=== PATIENT | male | born 1955 | race Caucasian/White ===

== ENCOUNTER 2020-10-16 07:37 | Outpatient (REF) | payer MEDICARE, OTHER, SELFPAY | END 2020-10-16 07:38 | disposition home or self-care (01) | LOC: HO.LAB 07:37 | PROVIDERS: PCP Internal Medicine; Visit Provider Internal Medicine | DX: Z20.822 Contact with and (suspected) exposure to COVID-19 (principal) | CPT/HCPCS: C9803; U0003; U0005 ==

== ENCOUNTER 2022-03-29 13:10 | Emergency (ER) | payer MEDICARE, OTHER, SELFPAY ==
[2022-03-29 13:13] VITALS: BP 131/58; PULSE 73; RESP 18; TEMP 36.4; O2SAT 99; BMI 32.8
--- NOTE | 2022-03-29 13:13 | ED.GENADULT ---
HPI - General Adult General Chief complaint: General Medical <YORDAN Omer - Last Filed: 03/29/22 13:16> Stated complaint: Needs IV antibiotic <YORDAN Omer - Last Filed: 03/29/22 13:16> Time Seen by Provider: 03/29/22 15:55 <YORDAN Omer - Last Filed: 03/29/22 13:16> Source: patient and family <Yandy Lr NP - Last Filed: 03/29/22 21:28> Mode of arrival: ambulatory <Yandy Lr NP - Last Filed: 03/29/22 21:28> Limitations: no limitations <Yandy Lr NP - Last Filed: 03/29/22 21:28> History of Present Illness HPI narrative: 66-year-old male presents for abnormal lab results from his paracentesis this morning. He was called by his nurse at the [facility] to return to [facility] or present to emergency department for spontaneous bacterial peritonitis. <Yandy Lr NP - Last Filed: 03/29/22 21:28> Onset (ago): hour(s) (Within the hour of arrival) <Yandy Lr NP - Last Filed: 03/29/22 21:28> Location: abdomen <Yandy Lr NP - Last Filed: 03/29/22 21:28> Radiation: non-radiation <Yandy Lr NP - Last Filed: 03/29/22 21:28> Associated symptoms: denies other symptoms <Yandy Lr NP - Last Filed: 03/29/22 21:28> Related Data Home medications: Home Medications Medication Instructions Recorded Confirmed albuterol sulfate 90 mcg/actuation 2 puff inhalation Q4H PRN wheezing 03/29/22 03/29/22 aerosol inhaler cholecalciferol (vitamin D3) 25 2 tab PO DAILY 03/29/22 03/29/22 mcg (1,000 unit) tablet furosemide 40 mg tablet 1 tab PO DAILY 03/29/22 03/29/22 nadolol 40 mg tablet 1 tab PO BEDTIME 03/29/22 03/29/22 pioglitazone 15 mg-metformin 850 1 tab PO BID 03/29/22 03/29/22 mg tablet simvastatin 40 mg tablet 1 tab PO BEDTIME 03/29/22 03/29/22 spironolactone 25 mg tablet 0.5 tab PO DAILY 03/29/22 03/29/22 <YORDAN Omer - Last Filed: 03/29/22 13:16> Allergies/adverse reactions: Allergies Allergy/AdvReac Type Severity Reaction Status Date / Time No Known Allergies Allergy Unverified 11/11/19 18:28 <YORDAN Omer - Last Filed: 03/29/22 13:16> Review of Systems Review of Systems: Constitutional: No Fever, No Chills Cardiovascular: No Chest Pain, No SOB Respiratory: No Cough, No Dyspnea Gastrointestinal: No Nausea, No Vomiting, No Diarrhea, No abdominal Pain Genitourinary: No Dysuria, No Hematuria Musculoskeletal: no joint pain, No Myalgias, No Joint Swelling Skin: No Skin lacerations, No rash Neuro: No Weakness, No Numbness, No Paresthesias, No Dizziness, No Headache <Yandy Lr NP - Last Filed: 03/29/22 21:28> Yes all other systems are reviewed and are negative <Yandy Lr NP - Last Filed: 03/29/22 21:28> [facility] Past Medical History Attestation statement: The following information was validated with the patient. <Yandy Lr NP - Last Filed: 03/29/22 21:28> Source: old records reviewed <Yandy Lr NP - Last Filed: 03/29/22 21:28> Social History Social History: Social History Alcohol intake: unknown Advance Directives: No Advance Directives Information Provided: No <YORDAN Omer - Last Filed: 03/29/22 13:16> Physical Exam ED Vital Signs: Vital Signs - 24 hr 03/29/22 13:13 03/29/22 16:00 03/29/22 18:38 Temperature 97.5 F 98.1 F 98.2 F Pulse Rate 73 66 66 Respiratory Rate 18 16 16 Blood Pressure 131/58 L 117/62 150/65 H Pulse Oximetry 99 97 97 Oxygen Delivery Method Room Air Room Air BMI result Body Mass Index 32.8 <YORDAN Omer - Last Filed: 03/29/22 13:16> Vital Signs - 24 hr 03/29/22 13:13 03/29/22 16:00 03/29/22 18:38 Temperature 97.5 F 98.1 F 98.2 F Pulse Rate 73 66 66 Respiratory Rate 18 16 16 Blood Pressure 131/58 L 117/62 150/65 H Pulse Oximetry 99 97 97 Oxygen Delivery Method Room Air Room Air BMI result Body Mass Index 32.8 <Yandy Lr NP - Last Filed: 03/29/22 21:28> Appearance: Alert. Oriented X3. No acute distress. Mild jaundiced. Eyes: Pupils equal, round and reactive to light. ENT: Pharynx normal. Neck: Normal inspection. Neck supple. CVS: Normal heart rate and rhythm. Pulses normal. Respiratory: No respiratory distress. Breath sounds normal. Abdomen: Soft and nontender. Distended consistent with ascites. Skin: Skin warm and dry. Normal skin color. Normal skin turgor. Extremities: No lower extremity edema. Gait not assessed for safety. Neuro: No motor deficit. No sensory deficit. Cranial nerves 2 12 intact <Yandy Lr NP - Last Filed: 03/29/22 21:28> Course Course Course Narrative: RME performed by Jeanna Mason PA-C. Patient had a paracentesis at [facility], they removed 2.5 liters. Patient was called after leaving and they were informed the fluid is infected and they need to proceed to the nearest ER for IV ABX immediately. Patient has a history of cirrhosis and liver cancer. <YORDAN Omer - Last Filed: 03/29/22 13:16> RME performed by Jeanna Mason PA-C. Patient had a paracentesis at [facility], they removed 2.5 liters. Patient was called after leaving and they were informed the fluid is infected and they need to proceed to the nearest ER for IV ABX immediately. Patient has a history of cirrhosis and liver cancer. 16:00 discussion with patient, patient was evaluated at [facility] earlier today given a paracentesis for cirrhosis and liver cancer with ascites. He was called by his nurse to return to the facility for bacterial peritonitis. Of the time I wrote arrival lactic acid is 3.1, no white count, BUN 38 creatinine 1.71. Labs are pending. 16:10 lactic acid 2nd 3.0, while patient does have a positive infection, history of cancer, I do not feel that this patient is septic. Patient is afebrile, nontoxic appearing. White count is 6.9. A review of patient's records on his 's cellphone indicate lab values from 03/29/2022 sodium 131, K 5.2, chloride 99, CO2 25, gap 7, BUN 38, creatinine 1.8, 305, calcium 9.1, GFR 38. On January 10 it was noted that his BUN was 20 and creatinine 1.3. 17:48 discussion with [facility], pending transfer. Patient is an established oncology patient with Dr. Guerrier, had his paracentesis earlier today at the same clinic. Patient's family feels that patient should be transferred to [facility] for the best possible care for this patient as all of his most recent records, tests and diagnostics have been completed at that facility. 18:00 patient accepted by the [facility], Dr. Guerrier. <Yandy Lr NP - Last Filed: 03/29/22 21:28> Medications Administered Discontinued Medications Generic Name Dose Route Start Last Admin Trade Name Freq PRN Reason Stop Dose Admin Ceftriaxone Sodium 2 gm/ 50 mls @ 100 mls/hr 03/29/22 13:13 03/29/22 16:27 Sodium Chloride IV 03/29/22 13:42 Infused ONCE ONE Infusion Sodium Chloride 1,000 mls @ 999 mls/hr 03/29/22 16:15 03/29/22 17:53 Ns IVCONT 03/29/22 17:15 Infused .Q1H1M CHAN Infusion Sodium Chloride 1,000 mls @ 999 mls/hr 03/29/22 18:30 03/29/22 19:29 Ns IVCONT 03/29/22 19:30 Infused .Q1H1M CHAN Infusion <YORDAN Omer - Last Filed: 03/29/22 13:16> Medications Administered Discontinued Medications Generic Name Dose Route Start Last Admin Trade Name Freq PRN Reason Stop Dose Admin Ceftriaxone Sodium 2 gm/ 50 mls @ 100 mls/hr 03/29/22 13:13 03/29/22 16:27 Sodium Chloride IV 03/29/22 13:42 Infused ONCE ONE Infusion Sodium Chloride 1,000 mls @ 999 mls/hr 03/29/22 16:15 03/29/22 17:53 Ns IVCONT 03/29/22 17:15 Infused .Q1H1M CHAN Infusion Sodium Chloride 1,000 mls @ 999 mls/hr 03/29/22 18:30 03/29/22 19:29 Ns IVCONT 03/29/22 19:30 Infused .Q1H1M CHAN Infusion <Yandy Lr NP - Last Filed: 03/29/22 21:28> Medical Decision Making Differential Diagnosis Differential Diagnoses: The differential diagnosis associated with the presentation includes <Yandy Lr NP - Last Filed: 03/29/22 21:28> Spontaneous bacterial peritonitis <Yandy Lr NP - Last Filed: 03/29/22 21:28> Admission/Observation Consideration of admission/observation: Escalation of care including admission/observation considered <Yandy Lr NP - Last Filed: 03/29/22 21:28> Patient requires admission <Yandy Lr NP - Last Filed: 03/29/22 21:28> Consult Healthcare Provider Management of the patient was discussed with: Buggy Runner and Primary Care Provider <Yandy Lr NP - Last Filed: 03/29/22 21:28> Patient to be transferred to [facility] by his primary oncologist <Yandy Lr NP - Last Filed: 03/29/22 21:28> Lab Data MDM Lab Attestation statement: I reviewed the patient's lab results. <Yandy Lr NP - Last Filed: 03/29/22 21:28> Result Diagrams: 03/29/22 13:36 03/29/22 13:35 <YORDAN Omer - Last Filed: 03/29/22 13:16> Labs: Lab Results 03/29/22 03/29/22 03/29/22 Range/Units 13:23 13:35 13:35 WBC (4.8-10.8) X10*3/uL RBC (4.60-5.80) X10*6/uL Hgb (14.0-18.0) g/dl Hct (42.0-52.0) % MCV (80.0-98.0) fL MCH (27.0-33.0) pg MCHC (31.0-36.0) g/dl RDW (11.0-16.0) % Plt Count (160-400) X10*3/uL MPV (9.4-12.4) fL Immature Gran % (Auto) (0.0-0.4) % Neut % (Auto) (45-73) % Lymph % (Auto) (20-40) % Kings % (Auto) (2-11) % Eos % (Auto) (0-4) % Baso % (Auto) (0-2) % Lymph # (Auto) (1.2-4.9) X10*3/uL Kings # (Auto) (0.1-1.2) X10*3/uL Eos # (Auto) (0.0-0.4) X10*3/uL Baso # (Auto) (0.0-0.2) X10*3/uL Abs Immat Gran (auto) (0.00-0.03) X10*3/uL Absolute Neuts (auto) (2.0-8.3) x10*3/uL Absolute Nucleated RBC (0.0-0.012) X10*3/uL Nucleated RBC % (auto) (0.0-0.2) /100WBC PT 16.0 H (10.0-13.1) SEC INR 1.4 H (0.9-1.1) APTT 30.0 (26.0-36.4) SEC Sodium 131 L (135-145) mmol/L Potassium 4.7 (3.3-5.1) mmol/L Chloride 98 (96-108) mmol/L Carbon Dioxide 22 (22-29) mmol/L Anion Gap 16 (12-20) BUN 38 H (9-16) mg/dL Creatinine 1.71 H (0.5-1.4) mg/dL Estim Creat Clear Calc 49.1 Estimated GFR 40 Random Glucose 337 H (60-115) mg/dL Lactic Acid (0.5-2.0) mmol/L Lactic Acid F/U @ 2Hr (0.5-2.0) mmol/L Lactic Acid F/U @ 4Hr (0.5-2.0) mmol/L Calcium 9.1 (8.4-10.2) mg/dL Magnesium 1.9 (1.6-2.6) mg/dL Total Bilirubin 2.2 H (0.0-1.0) mg/dL AST 37 (5-37) U/L ALT 38 (0-40) U/L Alkaline Phosphatase 122 H (39-117) U/L Total Protein 6.9 (6.5-8.0) g/dL Albumin 2.6 L (3.5-5.0) g/dL COVID-19 (TRIPP) Negative (Negative) COVID-19 Clin Com See Note 03/29/22 03/29/22 03/29/22 Range/Units 13:35 13:36 15:48 WBC 6.9 (4.8-10.8) X10*3/uL RBC 3.10 L (4.60-5.80) X10*6/uL Hgb 9.6 L (14.0-18.0) g/dl Hct 28.4 L (42.0-52.0) % MCV 91.6 (80.0-98.0) fL MCH 31.0 (27.0-33.0) pg MCHC 33.8 (31.0-36.0) g/dl RDW 16.6 H (11.0-16.0) % Plt Count 70 L (160-400) X10*3/uL MPV 9.1 L (9.4-12.4) fL Immature Gran % (Auto) 0.3 (0.0-0.4) % Neut % (Auto) 75.6 H (45-73) % Lymph % (Auto) 11.0 L (20-40) % Kings % (Auto) 10.2 (2-11) % Eos % (Auto) 2.6 (0-4) % Baso % (Auto) 0.3 (0-2) % Lymph # (Auto) 0.8 L (1.2-4.9) X10*3/uL Kings # (Auto) 0.7 (0.1-1.2) X10*3/uL Eos # (Auto) 0.2 (0.0-0.4) X10*3/uL Baso # (Auto) 0.0 (0.0-0.2) X10*3/uL Abs Immat Gran (auto) 0.02 (0.00-0.03) X10*3/uL Absolute Neuts (auto) 5.2 (2.0-8.3) x10*3/uL Absolute Nucleated RBC 0.000 (0.0-0.012) X10*3/uL Nucleated RBC % (auto) 0.0 (0.0-0.2) /100WBC PT (10.0-13.1) SEC INR (0.9-1.1) APTT (26.0-36.4) SEC Sodium (135-145) mmol/L Potassium (3.3-5.1) mmol/L Chloride (96-108) mmol/L Carbon Dioxide (22-29) mmol/L Anion Gap (12-20) BUN (9-16) mg/dL Creatinine (0.5-1.4) mg/dL Estim Creat Clear Calc Estimated GFR Random Glucose (60-115) mg/dL Lactic Acid 3.1 H* (0.5-2.0) mmol/L Lactic Acid F/U @ 2Hr 3.0 H* (0.5-2.0) mmol/L Lactic Acid F/U @ 4Hr (0.5-2.0) mmol/L Calcium (8.4-10.2) mg/dL Magnesium (1.6-2.6) mg/dL Total Bilirubin (0.0-1.0) mg/dL AST (5-37) U/L ALT (0-40) U/L Alkaline Phosphatase (39-117) U/L Total Protein (6.5-8.0) g/dL Albumin (3.5-5.0) g/dL COVID-19 (TRIPP) (Negative) COVID-19 Clin Com 03/29/22 Range/Units 18:04 WBC (4.8-10.8) X10*3/uL RBC (4.60-5.80) X10*6/uL Hgb (14.0-18.0) g/dl Hct (42.0-52.0) % MCV (80.0-98.0) fL MCH (27.0-33.0) pg MCHC (31.0-36.0) g/dl RDW (11.0-16.0) % Plt Count (160-400) X10*3/uL MPV (9.4-12.4) fL Immature Gran % (Auto) (0.0-0.4) % Neut % (Auto) (45-73) % Lymph % (Auto) (20-40) % Kings % (Auto) (2-11) % Eos % (Auto) (0-4) % Baso % (Auto) (0-2) % Lymph # (Auto) (1.2-4.9) X10*3/uL Kings # (Auto) (0.1-1.2) X10*3/uL Eos # (Auto) (0.0-0.4) X10*3/uL Baso # (Auto) (0.0-0.2) X10*3/uL Abs Immat Gran (auto) (0.00-0.03) X10*3/uL Absolute Neuts (auto) (2.0-8.3) x10*3/uL Absolute Nucleated RBC (0.0-0.012) X10*3/uL Nucleated RBC % (auto) (0.0-0.2) /100WBC PT (10.0-13.1) SEC INR (0.9-1.1) APTT (26.0-36.4) SEC Sodium (135-145) mmol/L Potassium (3.3-5.1) mmol/L Chloride (96-108) mmol/L Carbon Dioxide (22-29) mmol/L Anion Gap (12-20) BUN (9-16) mg/dL Creatinine (0.5-1.4) mg/dL Estim Creat Clear Calc Estimated GFR Random Glucose (60-115) mg/dL Lactic Acid (0.5-2.0) mmol/L Lactic Acid F/U @ 2Hr (0.5-2.0) mmol/L Lactic Acid F/U @ 4Hr 2.4 H* (0.5-2.0) mmol/L Calcium (8.4-10.2) mg/dL Magnesium (1.6-2.6) mg/dL Total Bilirubin (0.0-1.0) mg/dL AST (5-37) U/L ALT (0-40) U/L Alkaline Phosphatase (39-117) U/L Total Protein (6.5-8.0) g/dL Albumin (3.5-5.0) g/dL COVID-19 (TRIPP) (Negative) COVID-19 Clin Com <YORDAN Omer - Last Filed: 03/29/22 13:16> Lab Results 03/29/22 03/29/22 03/29/22 Range/Units 13:23 13:35 13:35 WBC (4.8-10.8) X10*3/uL RBC (4.60-5.80) X10*6/uL Hgb (14.0-18.0) g/dl Hct (42.0-52.0) % MCV (80.0-98.0) fL MCH (27.0-33.0) pg MCHC (31.0-36.0) g/dl RDW (11.0-16.0) % Plt Count (160-400) X10*3/uL MPV (9.4-12.4) fL Immature Gran % (Auto) (0.0-0.4) % Neut % (Auto) (45-73) % Lymph % (Auto) (20-40) % Kings % (Auto) (2-11) % Eos % (Auto) (0-4) % Baso % (Auto) (0-2) % Lymph # (Auto) (1.2-4.9) X10*3/uL Kings # (Auto) (0.1-1.2) X10*3/uL Eos # (Auto) (0.0-0.4) X10*3/uL Baso # (Auto) (0.0-0.2) X10*3/uL Abs Immat Gran (auto) (0.00-0.03) X10*3/uL Absolute Neuts (auto) (2.0-8.3) x10*3/uL Absolute Nucleated RBC (0.0-0.012) X10*3/uL Nucleated RBC % (auto) (0.0-0.2) /100WBC PT 16.0 H (10.0-13.1) SEC INR 1.4 H (0.9-1.1) APTT 30.0 (26.0-36.4) SEC Sodium 131 L (135-145) mmol/L Potassium 4.7 (3.3-5.1) mmol/L Chloride 98 (96-108) mmol/L Carbon Dioxide 22 (22-29) mmol/L Anion Gap 16 (12-20) BUN 38 H (9-16) mg/dL Creatinine 1.71 H (0.5-1.4) mg/dL Estim Creat Clear Calc 49.1 Estimated GFR 40 Random Glucose 337 H (60-115) mg/dL Lactic Acid (0.5-2.0) mmol/L Lactic Acid F/U @ 2Hr (0.5-2.0) mmol/L Lactic Acid F/U @ 4Hr (0.5-2.0) mmol/L Calcium 9.1 (8.4-10.2) mg/dL Magnesium 1.9 (1.6-2.6) mg/dL Total Bilirubin 2.2 H (0.0-1.0) mg/dL AST 37 (5-37) U/L ALT 38 (0-40) U/L Alkaline Phosphatase 122 H (39-117) U/L Total Protein 6.9 (6.5-8.0) g/dL Albumin 2.6 L (3.5-5.0) g/dL COVID-19 (TRIPP) Negative (Negative) COVID-19 Clin Com See Note 03/29/22 03/29/22 03/29/22 Range/Units 13:35 13:36 15:48 WBC 6.9 (4.8-10.8) X10*3/uL RBC 3.10 L (4.60-5.80) X10*6/uL Hgb 9.6 L (14.0-18.0) g/dl Hct 28.4 L (42.0-52.0) % MCV 91.6 (80.0-98.0) fL MCH 31.0 (27.0-33.0) pg MCHC 33.8 (31.0-36.0) g/dl RDW 16.6 H (11.0-16.0) % Plt Count 70 L (160-400) X10*3/uL MPV 9.1 L (9.4-12.4) fL Immature Gran % (Auto) 0.3 (0.0-0.4) % Neut % (Auto) 75.6 H (45-73) % Lymph % (Auto) 11.0 L (20-40) % Kings % (Auto) 10.2 (2-11) % Eos % (Auto) 2.6 (0-4) % Baso % (Auto) 0.3 (0-2) % Lymph # (Auto) 0.8 L (1.2-4.9) X10*3/uL Kings # (Auto) 0.7 (0.1-1.2) X10*3/uL Eos # (Auto) 0.2 (0.0-0.4) X10*3/uL Baso # (Auto) 0.0 (0.0-0.2) X10*3/uL Abs Immat Gran (auto) 0.02 (0.00-0.03) X10*3/uL Absolute Neuts (auto) 5.2 (2.0-8.3) x10*3/uL Absolute Nucleated RBC 0.000 (0.0-0.012) X10*3/uL Nucleated RBC % (auto) 0.0 (0.0-0.2) /100WBC PT (10.0-13.1) SEC INR (0.9-1.1) APTT (26.0-36.4) SEC Sodium (135-145) mmol/L Potassium (3.3-5.1) mmol/L Chloride (96-108) mmol/L Carbon Dioxide (22-29) mmol/L Anion Gap (12-20) BUN (9-16) mg/dL Creatinine (0.5-1.4) mg/dL Estim Creat Clear Calc Estimated GFR Random Glucose (60-115) mg/dL Lactic Acid 3.1 H* (0.5-2.0) mmol/L Lactic Acid F/U @ 2Hr 3.0 H* (0.5-2.0) mmol/L Lactic Acid F/U @ 4Hr (0.5-2.0) mmol/L Calcium (8.4-10.2) mg/dL Magnesium (1.6-2.6) mg/dL Total Bilirubin (0.0-1.0) mg/dL AST (5-37) U/L ALT (0-40) U/L Alkaline Phosphatase (39-117) U/L Total Protein (6.5-8.0) g/dL Albumin (3.5-5.0) g/dL COVID-19 (TRIPP) (Negative) COVID-19 Clin Com 03/29/22 Range/Units 18:04 WBC (4.8-10.8) X10*3/uL RBC (4.60-5.80) X10*6/uL Hgb (14.0-18.0) g/dl Hct (42.0-52.0) % MCV (80.0-98.0) fL MCH (27.0-33.0) pg MCHC (31.0-36.0) g/dl RDW (11.0-16.0) % Plt Count (160-400) X10*3/uL MPV (9.4-12.4) fL Immature Gran % (Auto) (0.0-0.4) % Neut % (Auto) (45-73) % Lymph % (Auto) (20-40) % Kings % (Auto) (2-11) % Eos % (Auto) (0-4) % Baso % (Auto) (0-2) % Lymph # (Auto) (1.2-4.9) X10*3/uL Kings # (Auto) (0.1-1.2) X10*3/uL Eos # (Auto) (0.0-0.4) X10*3/uL Baso # (Auto) (0.0-0.2) X10*3/uL Abs Immat Gran (auto) (0.00-0.03) X10*3/uL Absolute Neuts (auto) (2.0-8.3) x10*3/uL Absolute Nucleated RBC (0.0-0.012) X10*3/uL Nucleated RBC % (auto) (0.0-0.2) /100WBC PT (10.0-13.1) SEC INR (0.9-1.1) APTT (26.0-36.4) SEC Sodium (135-145) mmol/L Potassium (3.3-5.1) mmol/L Chloride (96-108) mmol/L Carbon Dioxide (22-29) mmol/L Anion Gap (12-20) BUN (9-16) mg/dL Creatinine (0.5-1.4) mg/dL Estim Creat Clear Calc Estimated GFR Random Glucose (60-115) mg/dL Lactic Acid (0.5-2.0) mmol/L Lactic Acid F/U @ 2Hr (0.5-2.0) mmol/L Lactic Acid F/U @ 4Hr 2.4 H* (0.5-2.0) mmol/L Calcium (8.4-10.2) mg/dL Magnesium (1.6-2.6) mg/dL Total Bilirubin (0.0-1.0) mg/dL AST (5-37) U/L ALT (0-40) U/L Alkaline Phosphatase (39-117) U/L Total Protein (6.5-8.0) g/dL Albumin (3.5-5.0) g/dL COVID-19 (TRIPP) (Negative) COVID-19 Clin Com <Yandy Lr NP - Last Filed: 03/29/22 21:28> Independent Historian Clinical information obtained from an independent historian. History obtained from or confirmed by: Spouse <Yandy Lr NP - Last Filed: 03/29/22 21:28> External Record Review External record reviewed: Outpatient record and Prior outpatient labs <Yandy Lr NP - Last Filed: 03/29/22 21:28> Prescription Management I considered prescription management with: Pain Medication and Antibiotic <Yandy Lr NP - Last Filed: 03/29/22 21:28> Chronic Conditions Patient?s care impacted by: Cancer <Yandy Lr NP - Last Filed: 03/29/22 21:28> Critical Care Time Critical Care Time Critical Care Time: Yes <Yandy Lr NP - Last Filed: 03/29/22 21:28> Total Critical Care Time: 45 <Yandy Lr NP - Last Filed: 03/29/22 21:28> Attestation: I have personally provided critical care time exclusive of time spent on separately billable procedures. Time includes review of laboratory data, radiology results, discussion with consultants, and monitoring for potential decompensation. Interventions were performed as documented. <Yandy Lr NP - Last Filed: 03/29/22 21:28> Discharge Plan Discharge Clinical Impression: Spontaneous bacterial peritonitis <YORDAN Omer - Last Filed: 03/29/22 13:16> Patient Disposition: [facility] <YORDAN Omer - Last Filed: 03/29/22 13:16> Transfer Details: [facility], accepting physician Dr Guerrier <YORDAN Omer - Last Filed: 03/29/22 13:16> [facility], accepting physician Dr Guerrier <Yandy Lr NP - Last Filed: 03/29/22 21:28> Instructions: Peritonitis (ED) <YORDAN Omer - Last Filed: 03/29/22 13:16> Prescriptions: No Action furosemide 40 mg tablet 1 tab PO DAILY spironolactone 25 mg tablet 0.5 tab PO DAILY simvastatin 40 mg tablet 1 tab PO BEDTIME nadolol 40 mg tablet 1 tab PO BEDTIME albuterol sulfate 90 mcg/actuation HFA aerosol inhaler 2 puff inhalation Q4H PRN (Reason: wheezing) pioglitazone-metformin 15-850 mg tablet 1 tab PO BID cholecalciferol (vitamin D3) 25 mcg (1,000 unit) tablet 2 tab PO DAILY <YORDAN Omer - Last Filed: 03/29/22 13:16>
[2022-03-29 13:44] LABS: Basophils Percent Auto 0.3 % (0-2); Eosinophils Absolute Auto 0.2 X10*3/uL (0.0-0.4); Eosinophils Percent Auto 2.6 % (0-4); Hematocrit 28.4 % (42.0-52.0); Hemoglobin 9.6 g/dl (14.0-18.0); Imm Gran Abs Auto 0.02 X10*3/uL (0.00-0.03); Imm Gran Pct Auto 0.3 % (0.0-0.4); Lymphocytes Absolute Auto 0.8 X10*3/uL (1.2-4.9); MANUAL DIFF FLAG NO; Mean Corpuscular HGB Conc 33.8 g/dl (31.0-36.0); Mean Corpuscular Volume 91.6 fL (80.0-98.0); Mean Platelet Volume 9.1 fL (9.4-12.4); Monocytes Absolute Auto 0.7 X10*3/uL (0.1-1.2); Monocytes Percent Auto 10.2 % (2-11); Neutrophils Absolute Auto 5.2 x10*3/uL (2.0-8.3); Neutrophils Percent Auto 75.6 % (45-73); Red Cell Distribution Width 16.6 % (11.0-16.0); White Blood Count 6.9 X10*3/uL (4.8-10.8)
[2022-03-29 13:50] LABS: INTERNATIONAL NORM RATIO 1.4 (0.9-1.1)
[2022-03-29 14:03] LABS: COVID-19 Test Negative (Negative); IDNOW Serial# 16C4AD1C
[2022-03-29 14:12] LABS: Alanine Aminotransferase 38 U/L (0-40); Albumin Level 2.6 g/dL (3.5-5.0); Alkaline Phosphatase 122 U/L (39-117); Anion Gap 16 (12-20); Aspartate Amino Transferase 37 U/L (5-37); Bilirubin Total 2.2 mg/dL (0.0-1.0); Blood Urea Nitrogen 38 mg/dL (9-16); Calcium 9.1 mg/dL (8.4-10.2); Carbon Dioxide 22 mmol/L (22-29); Chloride 98 mmol/L (96-108); Creatinine Clr Calc Pharmacy 49.1; Estimated Glomerular Filt Rate 40; Glucose Random 337 mg/dL (60-115); Magnesium 1.9 mg/dL (1.6-2.6); Potassium 4.7 mmol/L (3.3-5.1); Sodium 131 mmol/L (135-145); Total Protein 6.9 g/dL (6.5-8.0)
[2022-03-29 14:23] LABS: Platelet Count 70 X10*3/uL (160-400)
[2022-03-29 15:23] LABS: Lactic Acid 3.1 mmol/L (0.5-2.0)
[2022-03-29 15:40] LABS: Reflex Lactate? Lactic Acid Added
--- NOTE | 2022-03-29 15:41 | PC.NURSE ---
Patient with paracenthesis today called by [facility] for concern of infection in abdominal fluid AOx 4 neuros intact abdomen distended Neuros intact no ditress noted. IV access obtained labs collected and sent
[2022-03-29] MEDS: cefTRIAXone sodium 2 GM in 0.9 % Sodium Chloride 50 ML IV (15:50)
[2022-03-29 16:00] VITALS: BP 117/62; PULSE 66; RESP 16; TEMP 36.7; O2SAT 97
--- NOTE | 2022-03-29 16:05 | PHA.MEDREC ---
Pharmacy Consult ? Medication Reconciliation Pharmacy has completed the medication reconciliation.
--- NOTE | 2022-03-29 16:17 | PC.NURSE ---
notified patient orthostatic upon standing will await orders
[2022-03-29] MEDS: 0.9 % Sodium Chloride 1,000 ML 999 ML IVCONT ×2 (16:44→18:23)
--- NOTE | 2022-03-29 16:52 | PC.NURSE ---
Patient tolerating IVF and IV ABX no distress noted will CTM
[2022-03-29 17:54] LABS: Reflex Lactate? 2 Y
--- NOTE | 2022-03-29 18:12 | PC.NURSE ---
Attempt to call report to [facility] in [place], [place] floor [address] Central RN will call back
--- NOTE | 2022-03-29 18:13 | PC.NURSE ---
Patient up ambulatory to bathroom independently will CTM
--- NOTE | 2022-03-29 18:33 | MHC.EDTECH ---
call out to [facility] transfer line @[id number] bed assignment 6 central room 26 accepting provider nurse to nurse [phone]
[2022-03-29 18:34] LABS: ~Lactic Acid-LAB USE ONLY 2.4 mmol/L (0.5-2.0)
--- NOTE | 2022-03-29 18:36 | PC.NURSE ---
Report to Elías LACEY [facility] will prepare for transfer.
[2022-03-29 18:38] VITALS: BP 150/65; PULSE 66; RESP 16; TEMP 36.8; O2SAT 97
--- NOTE | 2022-03-29 19:38 | PC.NURSE ---
pt left via ambulance at [id number]
== END 2022-03-30 01:20 | disposition short-term general hospital (02) ==
PROVIDERS: Physician Assistant Medical; Emergency Provider Internal Medicine; PCP Internal Medicine
DX: K65.2 Spontaneous bacterial peritonitis (principal); Z20.822 Contact with and (suspected) exposure to COVID-19; Z20.828 Contact with and (suspected) exposure to other viral communicable diseases; Z79.899 Other long term (current) drug therapy
CPT/HCPCS: 36415; 80053; 83605; 83735; 85025; 85610; 85730; 87040; 87635; 96361; 96365; 99284; 99285; J0696